=== PATIENT | male | born 1995 | race African-American/Black ===

== ENCOUNTER 2017-03-09 13:24 | Emergency (ER) | payer OTHER ==
[2017-03-09] MEDS ORDERED: NS 0.9% 1000 ML* 2,000 ML IV ONE (13:54)
[2017-03-09] MEDS ORDERED: Ondansetron INJ* 2 MG/ML VIAL IV ONE (13:55)
[2017-03-09 15:07] LABS: Hematocrit 42 % (42-52); Hemoglobin 13.9 g/dl (14.0-18.0); Mean Corpuscular HGB Conc 33 g/dl (31-36); Mean Corpuscular Hemoglobin 28 pg (27-31); Mean Corpuscular Volume 84 fL (80-94); Mean Platelet Volume 9 um3 (7.4-10.4); Red Blood Count 5.02 10^6/ul (4.0-5.4); Red Cell Distribution Width 14 % (10.5-15)
[2017-03-09 15:19] LABS: Albumin 4.4 g/dL (3.2-5.2); BUN/Creatinine Ratio 12.4 (8-20); Calcium 9.2 mg/dL (8.6-10.3); EGFR African American 114.7 (>60); EGFR Non-African American 89.2 (>60); Globulin 2.8 g/dL (2-4); Potassium 3.9 mmol/L (3.5-5.0); Total Bilirubin 2.2 mg/dL (0.2-1.0); Total Protein 7.2 g/dL (6.4-8.9)
[2017-03-09 16:21] VITALS: BP 124/75
--- NOTE | 2017-03-17 14:42 | ED ---
Davonte Heredia Thomas, scribed for Isael Tran MD on 03/09/17 at 1422 . GI/ HPI - HPI Summary HPI Summary: The pt is a 21 y/o M presenting to the ED c/o N/V/D that began 3 days ago. His stool has been loose and watery and he has been dry heaving. The pt additionally c/o syncope (per mother), shaking, lightheadedness, and abd pain ( epigastric and after eating). Pt denies bloody stools. During the syncopal episode, the pt's eyes were rolling around. There was no head trauma during this episode. Earlier today, and ambulance was called, but he did not ride in the ambulance to the hospital because his vital signs were within normal limits. He denies recently drinking untreated water, eating raw meats, eating shellfish. PMHx: previously healthy. PSHx: L knee arthroscopy (3 years ago). SHx : dancing and athletic, works at [employer], some smoking, some drinking. FHx : DM, HTN. - History of Current Complaint Chief Complaint: EDSyncope Time Seen by Provider: 03/09/17 13:54 Stated Complaint: SYNCOPE/NAUSEA Hx Obtained From: Patient Onset/Duration: Started Days Ago - 3, Still Present Timing: Constant Location of Pain: Epigastric - after eating Associated Signs and Symptoms: Positive: Nausea, Vomiting, Diarrhea - loose, watery stool, Abdominal Pain - epigastric after eating, Other: - POS: syncopal episode (with LOC, witnessed by mother); NEG: head trauma, bloody stools. Aggravating Factor(s): Nothing Alleviating Factor(s): Nothing - Allergy/Home Medications Allergies/Adverse Reactions: Allergies Allergy/AdvReac Type Severity Reaction Status Date / Time No Known Allergies Allergy Verified 03/09/17 13:49 PMH/Surg Hx/FS Hx/Imm Hx Previously Healthy: Yes Cardiovascular History: Denies: Hx Myocardial Infarction Opthamlomology History: Denies: Hx Legally Blind Infectious Disease History: Denies: Traveled Outside the [place] in Last 30 Days - Family History Known Family History: Positive: Hypertension, Diabetes - Social History Occupation: Employed Full-time - in food service driver Alcohol Use: some Hx Tobacco Use: Yes Smoking Status (MU): Smoker, Current Status Unknown Review of Systems Constitutional: Negative Negative: Fever, Chills Eyes: Negative Negative: Erythema - eyes ENT: Negative Negative: Sore Throat Cardiovascular: Negative Negative: Chest Pain Respiratory: Negative Negative: Shortness Of Breath, Cough Positive: Abdominal Pain - epigastric after eating, Vomiting, Diarrhea - watery stools, Nausea. Negative: Other - NEG: bloody stools Genitourinary: Negative Negative: dysuria, hematuria Musculoskeletal: Negative Negative: Edema - leg, Other - NEG: head trauma Skin: Negative Negative: Rash Neurological: Other - POS: shaking; NEG: dizziness Positive: Syncope - with LOC, today, witnessed by mother Psychological: Normal All Other Systems Reviewed And Are Negative: Yes Physical Exam - Summary Physical Exam Summary: Constitutional: Well-developed, Well-nourished, Alert. (-) Distressed Skin: Warm, Dry HENT: Normocephalic; Atraumatic Eyes: Conjunctiva normal Neck: Musculoskeletal ROM normal neck. (-) JVD, (-) Stridor, (-) Tracheal deviation Cardio: Rhythm regular, rate normal, Heart sounds normal; Intact distal pulses; The pedal pulses are 2+ and symmetric. Radial pulses are 2+ and symmetric. (-) Murmur Pulmonary/Chest wall: Effort normal. (-) Respiratory distress, (-) Wheezes, (-) Rales Abd: Soft, (-) Tenderness, (-) Distension, (-) Guarding, (-) Rebound Musculoskeletal: (-) Edema Lymph: (-) Cervical adenopathy Neuro: Alert, Oriented x3 Psych: Mood and affect Normal Triage Information Reviewed: Yes Vital Signs On Initial Exam: Initial Vitals Temp Pulse Resp BP Pulse Ox 98.8 F 59 16 125/68 100 03/09/17 13:35 03/09/17 13:35 03/09/17 13:35 03/09/17 13:35 03/09/17 13:35 Vital Signs Reviewed: Yes Diagnostics - Vital Signs Vital Signs Temp Pulse Resp BP Pulse Ox 03/09/17 13:35 98.8 F 59 16 125/68 100 - Laboratory Result Diagrams: 03/09/17 14:20 03/09/17 14:20 Lab Statement: Any lab studies that have been ordered have been reviewed, and results considered in the medical decision making process. - EKG 14:26 Cardiac Rate: NL - 61 BPM EKG Interpretation: Sinus arrythmia. No STEMI. Early repolarization. GIGU Course/Dx - Course Assessment/Plan: The pt is a 21 y/o M presenting to the ED c/o N/V/D that began 3 days ago. His stool has been loose and watery and he has been dry heaving. The pt additionally c/o syncope (per mother), shaking, lightheadedness, and abd pain (epigastric and after eating). Pt denies bloody stools. During the syncopal episode, the pt's eyes were rolling around. There was no head trauma during this episode. Earlier today, and ambulance was called, but he did not ride in the ambulance to the hospital because his vital signs were within normal limits. He denies recently drinking untreated water, eating raw meats, eating shellfish. PMHx: previously healthy. PSHx: L knee arthroscopy (3 years ago). SHx: dancing and athletic, works at [employer], some smoking, some drinking. FHx: DM, HTN. EKG revealed sinus arrhythmia, no STEMI, early repolarization. Bloodwork shows Hgb 13.9, Lymph % 22.6, Collin % 11.5, and bilirubin 2.20. In the ED course the patient was given IV fluids and Zofran. The patient was diagnosed with gastroenteritis, syncope, and dehydration. He was discharged home with [facility] [place] and referral to urgent care. He was told not to return to work until cleared by urgent care. - Diagnoses Provider Diagnoses: Gastroenteritis, Syncope, Dehydration Discharge - Discharge Plan Condition: Stable Disposition: HOME Prescriptions: Ondansetron ODT TAB* [Zofran 4 MG Odt TAB*] 4 mg PO Q8H PRN #6 tab.odt PRN Reason: Nausea/Vomiting Patient Education Materials: Gastroenteritis (ED), Syncope (ED), Dehydration ( ED) Forms: *Work Release Referrals: [facility]IAN REFERRAL [Outside] - 3 Days Additional Instructions: RETURN TO THE EMERGENCY DEPARTMENT FOR CHANGING OR WORSENING SYMPTOMS Follow up at [facility]. The documentation as recorded by the Davonte aden Thomas accurately reflects the service I personally performed and the decisions made by , Isael Tran MD.
== END 2017-03-09 16:25 | disposition home or self-care (01) ==
LOC: ED 13:24
DX: K52.9 Noninfective gastroenteritis and colitis, unspecified (principal); E86.0 Dehydration; R11.2 Nausea with vomiting, unspecified; R19.7 Diarrhea, unspecified; R55 Syncope and collapse; R10.9 Unspecified abdominal pain
CPT/HCPCS: 36415; 80053; 83605; 85025; 93005; 96361; 96374; 99283; J2405

== ENCOUNTER 2017-03-14 17:30 | Emergency (ER) | payer OTHER ==
[2017-03-14 17:47] VITALS: BP 122/65
--- NOTE | 2017-03-17 14:37 | ED ---
Taqueria Heredia Rebecca, scribed for Isael Tran MD on 03/14/17 at 1748 . Complex/Multi-Sys Presentation - HPI Summary HPI Summary: Jossie bains 21 y/o M who presents to ED requesting a note to return to be able to work. He was evaluated [place] [facility] [place] with a Dx of gastroenteritis and an Rx for Zofran. Pt reports his symptoms have completely resolved and that he is feeling significantly better. Denies fever, abdominal pain, V/D. - History Of Current Complaint Chief Complaint: EDGeneral Hx Obtained From: Patient Onset/Duration: Resolved Severity Currently: None Location: Negative Related History: Recent Illness - Gastroenteritis - Allergies/Home Medications Allergies/Adverse Reactions: Allergies Allergy/AdvReac Type Severity Reaction Status Date / Time No Known Allergies Allergy Verified 03/09/17 13:49 PMH/Surg Hx/FS Hx/Imm Hx Endocrine/Hematology History: Denies: Hx Diabetes Cardiovascular History: Denies: Hx Coronary Artery Disease, Hx Myocardial Infarction Infectious Disease History: No Infectious Disease History: Denies: Traveled Outside the [place] in Last 30 Days - Family History Known Family History: Positive: Hypertension, Diabetes - Social History Alcohol Use: Occasionally Alcohol Amount: socially Substance Use Type: Reports: Marijuana Smoking Status (MU): Light Every Day Tobacco Smoker Review of Systems Negative: Fever, Chills Negative: Erythema Negative: Sore Throat Negative: Chest Pain Negative: Shortness Of Breath, Cough Negative: Abdominal Pain, Vomiting, Diarrhea, Nausea Negative: dysuria, hematuria Negative: Myalgia, Edema Negative: Rash Neurological: Other - Negative dizziness All Other Systems Reviewed And Are Negative: Yes Physical Exam - Summary Physical Exam Summary: General: Well appearing, no distress Cardiovascular: Skin is well perfused Pulmonary: No respiratory distress, no tachypnea Abdomen: Non-distended Skin: Warm, pink, dry Psych: Normal affect Neuro: A&Ox3 Triage Information Reviewed: Yes Vital Signs On Initial Exam: Initial Vitals Temp Pulse Resp BP Pulse Ox 98.5 F 79 17 122/65 100 03/14/17 17:44 03/14/17 17:44 03/14/17 17:44 03/14/17 17:44 03/14/17 17:44 Vital Signs Reviewed: Yes Diagnostics - Vital Signs Vital Signs Temp Pulse Resp BP Pulse Ox 03/14/17 17:44 98.5 F 79 17 122/65 100 - Laboratory Lab Statement: Any lab studies that have been ordered have been reviewed, and results considered in the medical decision making process. Complex Multi-Symp Course/Dx Assessment/Plan: Jossie bains 21 y/o M who presents to ED requesting a note to return to be able to work. He was evaluated [place] [facility] [place]09 with a Dx of gastroenteritis and an Rx for Zofran. Pt reports his symptoms have completely resolved and that he is feeling significantly better. Denies fever, abdominal pain, V/D. He will be D/C to home with Dx of gastroenteritis, resolved with a note to return to work up and a follow up with his PCP. He understands and agrees. - Diagnoses Provider Diagnoses: Gastroenteritis, resolved Discharge - Discharge Plan Condition: Stable Disposition: HOME Forms: *Work Release Referrals: Non Staff,Doctor [Primary Care Provider] - 3 Days Additional Instructions: RETURN TO EMERGENCY DEPARTMENT FOR ANY RETURNING OR WORSENING SYMPTOMS. The documentation as recorded by the Taqueria aden Rebecca accurately reflects the service I personally performed and the decisions made by , Isael Tran MD.
== END 2017-03-14 17:55 | disposition home or self-care (01) ==
LOC: ED 17:30
DX: K52.9 Noninfective gastroenteritis and colitis, unspecified (principal); Z09 Encounter for follow-up examination after completed treatment for conditions other than malignant neoplasm; F12.90 Cannabis use, unspecified, uncomplicated; F17.210 Nicotine dependence, cigarettes, uncomplicated
CPT/HCPCS: 99281